=== PATIENT | female | born 1945 | race Caucasian/White ===

== ENCOUNTER 2022-07-20 08:33 | Day surgery (SDC) | payer MEDICARE, OTHER ==
[2012-09-25 16:26] VITALS: BP 114/64
[2022-07-20] MEDS ORDERED: Decadron 4 MG INJ IV ONE (08:34)
[2022-07-20] MEDS ORDERED: Xylocaine 1% Vial 30 ML PF IJ ONE (08:34)
[2022-07-20] MEDS ORDERED: Marcaine Mpf 0.5% Vial 30 Ml IJ ONE (08:34)
[2022-07-20] MEDS ORDERED: Depo-Medrol 40 MG/ML IM ONE (08:34)
[2022-07-20] MEDS ORDERED: DIPRIVAN 200 MG/20 ML IV ONE (10:33)
[2022-07-20] MEDS ORDERED: Lactated Ringers 1,000 ML IV ONE (12:24)
--- NOTE | 2022-07-20 12:43 | XRAY ---
Indication: Left ischial bursa and left piriformis injections. Intraoperative fluoroscopy provided for 29 seconds. 2 digital spot image submitted for interpretation demonstrates needle tip projecting over left piriformis muscle. Second needle tip inferior to left ischial tuberosity. Small amount of contrast injected for both needle tip placement. Correlate with intraoperative findings/report.
--- NOTE | 2022-07-20 14:24 | XRAY ---
29 seconds fluoroscopy time in surgery for left ischial bursa and left piriformis muscle injections.
== END 2022-07-20 11:05 | disposition home or self-care (01) ==
LOC: SDC-PAIN 08:33
PROVIDERS: ATTEND Psychiatry & Neurology Pain Medicine
DX: M70.62 Trochanteric bursitis, left hip (principal); M79.18 Myalgia, other site; Z79.899 Other long term (current) drug therapy
CPT/HCPCS: 20552; 20610; 72170; 77002; 99100; J1030; J1100; J2001; J2704; Q9966